=== PATIENT | female | born 1980 | race Two or more races ===

== ENCOUNTER 2018-09-03 05:12 | Emergency (ER) | payer SELFPAY ==
[~2018-09-03] VITALS: Ht 162.6 cm; Wt 95.3 kg
--- NOTE | 2018-09-03 05:26 | Emergency Room Report ---
History of Present Illness General Chief Complaint: To Be Triaged Source: Patient Present Illness [facility] This is a 38-year-old female with no past medical history. She presents with chief complaint of dizziness. Onset was 2 days ago. When she got up to go to work she said everything was spinning. She had to lay down. She was vomiting also. It lasted for couple hours and got better. The next day she felt better but still have some nausea and room spinning when she stood up. Today symptom worsen. When she got up room was spinning. Worse when she turned her head a certain way. No fever chills he does have nausea and vomiting. No diarrhea. She did have a URI a week ago. Allergies: Coded Allergies: No Known Allergies (Unverified , 09/03/18) Patient History Past Medical History: see triage record, old chart reviewed Past Surgical History: none Pertinent Family History: none Social History: Denies: smoking Now: No Immunizations: other Reviewed Nursing Documentation: PMH: Agreed; PSxH: Agreed Review of Systems Eye: Denies: eye pain, blurred vision ENT: Denies: ear pain, nose congestion, throat swelling Respiratory: Denies: cough, shortness of breath Cardiovascular: Denies: chest pain, palpitations Gastrointestinal: Reports: nausea, vomiting; Denies: abdominal pain, diarrhea Musculoskeletal: Denies: back pain, joint pain Skin: Denies: rash Neurological: Reports: dizziness; Denies: headache, numbness Endocrine: Denies: increased thirst, increased urine Hematologic/Lymphatic: Denies: easy bruising All Other Systems: negative except mentioned in HPI Physical Exam vitals unremarkable Sp02 EP Interpretation: reviewed, normal General Appearance: well appearing, no apparent distress, alert Head: normocephalic, atraumatic Eyes: bilateral eye PERRL, bilateral eye EOMI, bilateral eye other - Symptoms with movements of eyes ENT: hearing grossly normal, normal pharynx Neck: full range of motion, supple, no meningismus Respiratory: chest non-tender, lungs clear, normal breath sounds Cardiovascular #1: regular rate, rhythm, no murmur Gastrointestinal: normal bowel sounds, non tender, no mass, no organomegaly, no bruit, non-distended Musculoskeletal: back normal, gait/station normal, normal range of motion Psychiatric: mood/affect normal Skin: warm/dry Medical Decision Making Diagnostic Impression: Primary Impression: Vertigo Additional Impression: UTI (urinary tract infection) Qualified Codes: N30.00 - Acute cystitis without hematuria ER Course Patient with vertigo symptoms. No red flags indicate central vertigo. No evidence of CVA/TIA, VBI, or neoplastic process. Patient felt better now. If labs are normal, can be discharged home. We'll treat for UTI also. Status: improved Disposition: HOME, SELF-CARE Condition: Stable Scripts Cephalexin* (KEFLEX*) 500 Mg Capsule 500 MG ORAL TID, #21 CAP Prov: Spike Calloway MD 09/03/18 Meclizine Hcl* (MECLIZINE*) 25 Mg Tablet 50 MG ORAL THREE TIMES A DAY, #30 TAB Prov: Spike Calloway MD 09/03/18 Additional Instructions: Follow-up with your doctor in 7 days. Return if symptom worsen. Spike Calloway MD Sep 03, 2018 05:26
[2018-09-03] MEDS ORDERED: LORazepam Inj 2mg/ml 1ml IV ONE (05:30)
[2018-09-03 05:35] VITALS: BP 133/76
[2018-09-03 06:04] LABS: APPEARANCE,URINE CLEAR; BILIRUBIN, URINE NEGATIVE (NEGATIVE); GLUCOSE, URINE (UA) NEGATIVE (NEGATIVE); KETONES,URINE NEGATIVE (NEGATIVE); LEUKOCYTE ESTERASE ,URINE 2+ (NEGATIVE); NITRITE,URINE NEGATIVE (NEGATIVE); PH,URINE 5 (4.5-8.0); PROTEIN,URINE 2+ (NEGATIVE); UROBILINOGEN,URINE NORMAL MG/DL (0.0-1.0)
[2018-09-03 06:18] LABS: COLOR,URINE YELLOW
[2018-09-03] MEDS ORDERED: cefTRIAXone 1 GM in NS 55 ML IVPB ONE (06:30)
[2018-09-03 06:32] LABS: EOSINOPHILS % (AUTO) 0.7 % (0.0-3.0); HEMATOCRIT 41.6 % (37.0-47.0); HEMOGLOBIN 13.4 G/DL (12.0-16.0); LYMPHOCYTES % (AUTO) 17.1 % (20.0-45.0); MEAN CORPUSCULAR VOLUME 83 FL (80-99); MONOCYTES % (AUTO) 4.7 % (1.0-10.0); NEUTROPHILS % (AUTO) 76.6 % (45.0-75.0); PLATELET COUNT 119 K/UL (150-450); RED BLOOD COUNT 5.04 M/UL (4.20-5.40); WHITE BLOOD COUNT 8.7 K/UL (4.8-10.8)
[2018-09-03] MEDS ORDERED: MECLIZINE HCL25 MG ORAL (06:37)
[2018-09-03] MEDS ORDERED: CEPHALEXIN500 MG ORAL (06:37)
[2018-09-03 06:44] LABS: ANION GAP 9 mmol/L (5-15); BLOOD UREA NITROGEN 10 mg/dL (7-18); CALCIUM 8.9 MG/DL (8.5-10.1); CARBON DIOXIDE 26 MMOL/L (21-32); CHLORIDE 104 MMOL/L (98-107); CREATININE 0.6 MG/DL (0.55-1.30); POTASSIUM 4.2 MMOL/L (3.5-5.1); SODIUM 138 MMOL/L (136-145)
[2018-09-03 07:54] VITALS: BP 116/78
== END 2018-09-03 07:56 | disposition home or self-care (01) ==
LOC: EMR 06:07
DX: R42 Dizziness and giddiness (principal); N39.0 Urinary tract infection, site not specified
CPT/HCPCS: 36415; 80048; 81001; 81025; 85025; 87086; 96361; 96365; 96375; 99284; J0696

== ENCOUNTER 2019-03-27 17:03 | Emergency (ER) | payer SELFPAY ==
[~2019-03-27] VITALS: Ht 165.1 cm; Wt 95.3 kg
[~2019-03-27 17:03] MED LIST: CEPHALEXIN500 MG ORAL; MECLIZINE HCL25 MG ORAL
[2019-03-27 17:19] VITALS: BP 142/77
[2019-03-27] MEDS ORDERED: OMEPRAZOLE20 M3 ORAL (17:22)
--- NOTE | 2019-03-27 17:27 | NUR ---
ED Nurse Note: Patient presents to ER due to flu-like symptoms for the past 4-5 days; Patient awake, alert, oriented x 4. Regular, unlabored breathing noted. Persistent, dry cough noted. Applied mask. c/o sore thraot. Able to swallow fluids and solid food with some discomfort. Reports no N/V, fever or rash. Placed patient in chair.
[2019-03-27] MEDS ORDERED: IBUPROFEN600 MG ORAL (17:44)
[2019-03-27] MEDS ORDERED: PROMETHAZI6.25 MG/1 ORAL (17:44)
[2019-03-27] MEDS ORDERED: AMOXICILLIN500 MG ORAL (17:44)
[2019-03-27] MEDS ORDERED: Ketorolac 60mg Inj IM ONE (17:45)
[2019-03-27 18:39] VITALS: BP 142/77
--- NOTE | 2019-03-27 18:41 | NUR ---
ED Nurse Note: Pt cleared by health care Provider for discharge. DC instructions/prescription was given and explained to pt and verbalized understanding of teachings. All medical deviecs such as ID band removed. Pt is AAO x4, ambulatory and left with all personal belongings.
--- NOTE | 2019-03-27 19:33 | Emergency Room Report ---
History of Present Illness General Chief Complaint: Flu Like Symptoms Source: Patient Present Illness HPI Patient presents with complaints of left-sided sore throat Reports ongoing for the past 2 days low-grade fever now as well Pain is worsened with swallowing Denies any chest pain however she has had a cough denies any vomiting or diarrhea denies any neck pain denies any photophobia Allergies: Coded Allergies: No Known Allergies (Unverified , 09/03/18) Patient History Past Medical History: see triage record Pertinent Family History: none Last Menstrual Period: 03/25/2019 Reviewed Nursing Documentation: PMH: Agreed; PSxH: Agreed Nursing Documentation-PMH Past Medical History: No Stated History Hx Gastrointestinal Problems: No - gallbladder removal 2006, GERD Review of Systems All Other Systems: negative except mentioned in HPI Physical Exam Vital Signs Date Time Temp Pulse Resp B/P (MAP) Pulse Ox O2 Delivery O2 Flow Rate FiO2 03/27/19 17:19 99.1 95 17 142/77 (98) 99 Room Air Sp02 EP Interpretation: reviewed, normal General Appearance: well appearing, no apparent distress Head: normocephalic, atraumatic Eyes: bilateral eye PERRL, bilateral eye EOMI ENT: hearing grossly normal, normal voice, TMs + canals normal, uvula midline, pharyngeal erythema - Left sided Neck: full range of motion, supple, no meningismus, no bony tend Respiratory: lungs clear, normal breath sounds, no rhonchi, no respiratory distress, no retraction, no accessory muscle use Cardiovascular #1: normal peripheral pulses, regular rate, rhythm, no edema, no gallop, no JVD, no murmur Gastrointestinal: normal bowel sounds, non tender, soft, no mass, no organomegaly, non-distended, no guarding, no hernia, no pulsatile mass, no rebound Genitourinary: no CVA tenderness Musculoskeletal: normal inspection Neurologic: oriented x3, responsive, 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, motor strength/ tone normal, sensory intact Psychiatric: mood/affect normal Skin: normal color, no rash, warm/dry, palpation normal Lymphatic: normal inspection, no adenopathy Medical Decision Making Diagnostic Impression: Primary Impression: pharyngitis ER Course Multiple differentials including but not limited to retropharyngeal abscess, peritonsillar abscess, pharyngitis considered Patient's exam is consistent with likely pharyngitis Does not reveal any change in her voice Uvula is midline patient is given pain medication here and requires close antibiotic coverage Last Vital Signs Date Time Temp Pulse Resp B/P (MAP) Pulse Ox O2 Delivery O2 Flow Rate FiO2 03/27/19 18:39 99.1 17 142/77 99 Room Air 03/27/19 17:25 95 Status: improved Disposition: HOME, SELF-CARE Condition: Improved Scripts Promethazine Hcl (PROMETHAZINE HCL*) 6.25 Mg/5 Ml Syrup 5 ML ORAL Q8H, #120 ML 0 Refills Prov: Rashad Zuluaga DO 03/27/19 Ibuprofen* (MOTRIN*) 600 Mg Tablet 600 MG ORAL THREE TIMES A DAY, #20 TAB 0 Refills Prov: Rashad Zuluaga DO 03/27/19 Amoxicillin* (AMOXIL*) 500 Mg Capsule 500 MG ORAL THREE TIMES A DAY, #21 CAP Prov: Rashad Zuluaga DO 03/27/19 Referrals: [facility] Patient Instructions: Pharyngitis, [id number] Additional Instructions: Patient is provided with the discharge instructions notified to follow up with primary doctor in the next 2-3 days otherwise return to the er with any worsening symptoms. Please note that this report is being documented using [employer] technology. This can lead to erroneous entry secondary to incorrect interpretation by the dictating instrument. Rashad Zuluaga DO Mar 27, 2019 19:33
== END 2019-03-27 18:39 | disposition home or self-care (01) ==
LOC: EMR 17:26
DX: J02.9 Acute pharyngitis, unspecified (principal)
CPT/HCPCS: 96372; 99283